=== PATIENT | male | born 1980 | race Native Hawaiian/Other Pacific Islander ===

== ENCOUNTER 2022-07-14 06:05 | Emergency (ER) | payer OTHER ==
[~2022-07-14] VITALS: Ht 185.4 cm; Wt 99.8 kg
[2022-07-14 06:10] VITALS: BP 143/100; TEMP 99.1
== END 2022-07-14 07:18 | disposition home or self-care (01) ==
LOC: ED 06:05
PROC: 0HDRXZZ Extraction of Toe Nail, External Approach (ICD-10-PCS; principal; 2022-07-14)
DX: S91.202A Unspecified open wound of left great toe with damage to nail, initial encounter (principal); K12.1 Other forms of stomatitis; B35.1 Tinea unguium; W22.8XXA Striking against or struck by other objects, initial encounter; Y92.89 Other specified places as the place of occurrence of the external cause; F17.210 Nicotine dependence, cigarettes, uncomplicated
CPT/HCPCS: 96372; 99283; J1885

== ENCOUNTER 2023-01-11 15:13 | Outpatient (CLI) | payer OTHER | END 2023-01-11 20:36 | disposition home or self-care (01) | LOC: RAD 15:13 | PROVIDERS: ATTEND Internal Medicine | DX: Z02.71 Encounter for disability determination (principal) ==